=== PATIENT | male | born 1980 ===

== ENCOUNTER 2020-07-10 06:31 | Outpatient (RCR) | payer OTHER ==
[~2020-07-10] VITALS: Ht 180.3 cm; Wt 95.3 kg
[2020-07-10] VITALS (8 sets, daily range): BP systolic 114–124; BP diastolic 61–78
[2020-07-10] MEDS ORDERED: NS 500ML ONE (06:32)
[2020-07-10] MEDS ORDERED: Etomidate 40mg/20ml Inj IV ONE (06:32)
[2020-07-10] MEDS ORDERED: Succinylcholine 20mg/ml 10ml vial ONE (06:32)
[2020-07-12] VITALS (7 sets, daily range): BP systolic 118–131; BP diastolic 59–81
[2020-07-12] MEDS ORDERED: NS 500ML ONE (06:00)
[2020-07-12] MEDS ORDERED: Etomidate 40mg/20ml Inj IV ONE (06:00)
[2020-07-12] MEDS ORDERED: Succinylcholine 20mg/ml 10ml vial ONE (06:00)
[2020-07-14] VITALS (7 sets, daily range): BP systolic 112–146; BP diastolic 68–87
[2020-07-14] MEDS ORDERED: NS 500ML ONE (06:00)
[2020-07-14] MEDS ORDERED: Succinylcholine 20mg/ml 10ml vial ONE (06:00)
[2020-07-14] MEDS ORDERED: Etomidate 40mg/20ml Inj IV ONE (06:00)
[2020-07-17] MEDS ORDERED: NS 500ML ONE (06:00)
[2020-07-17] MEDS ORDERED: Etomidate 40mg/20ml Inj IV ONE (06:00)
[2020-07-17] MEDS ORDERED: Succinylcholine 20mg/ml 10ml vial ONE (06:00)
[2020-07-17 09:21] VITALS: BP 127/86
[2020-07-17] MEDS ORDERED: Lidocaine 2% 100mg/5ml Carp IV PRN (09:39)
[2020-07-17] MEDS ORDERED: Atropine Sulfate 0.4mg/ml inj IVP PRN (09:39)
[2020-07-17 09:40] VITALS: BP 138/100
[2020-07-17 09:45] VITALS: BP 137/89
[2020-07-17 09:50] VITALS: BP 141/92
[2020-07-17 10:00] VITALS: BP 137/82
[2020-07-17 10:05] VITALS: BP 138/83
[2020-07-19] VITALS (7 sets, daily range): BP systolic 127–140; BP diastolic 78–86
[2020-07-19] MEDS ORDERED: NS 500ML ONE (06:00)
[2020-07-19] MEDS ORDERED: Etomidate 40mg/20ml Inj IV ONE (06:00)
[2020-07-19] MEDS ORDERED: Succinylcholine 20mg/ml 10ml vial ONE (06:00)
== END 2020-07-30 | disposition home or self-care (01) ==
LOC: ECT 06:31
DX: F33.2 Major depressive disorder, recurrent severe without psychotic features (principal); I10 Essential (primary) hypertension; G47.33 Obstructive sleep apnea (adult) (pediatric); D64.9 Anemia, unspecified; F10.10 Alcohol abuse, uncomplicated
CPT/HCPCS: 90870; J0330; J2704; J7040